=== PATIENT | female | born 2000 | race Caucasian/White ===

== ENCOUNTER 2021-03-14 21:00 | Emergency (ER) | payer MEDICAID, OTHER ==
[~2021-03-14] VITALS: Ht 172.7 cm; Wt 70.3 kg
[2021-03-14 22:01] VITALS: BP_SYST 128
--- NOTE | 2021-03-14 22:44 | NUR ---
Patient ambulatory to bed 1 for evaluation
--- NOTE | 2021-03-14 23:00 | NUR ---
Received patient to ER w/ c/o dizziness and vomiting at home while resting. Patient states that she had fainted but is unable to recollect event. Introduced self to patient, positioned for comfort. Bed to low position, continue to monitor. ER Dr. Temple at bedside examining patient.
--- NOTE | 2021-03-15 00:30 | NUR ---
Urine specimen collected and analyzed in lab. Results pending and to be given to SARAH NICK.
--- NOTE | 2021-03-15 01:02 | NUR ---
Patient resting quietly. No acute distress noted. Vital signs within normal range.
[2021-03-15 01:30] LABS: HEMATOCRIT 37.2 % (36-48); MEAN CORPUSCULAR HEMOGLOBIN 24 pg (27-31); MEAN CORPUSCULAR HGB CONC 32 % (32-36); MEAN CORPUSCULAR VOLUME 75 fL (79.0-98.0); RED BLOOD CELL COUNT(AUTO) 4.97 MIL/uL (4.2-6.2); WHITE BLOOD COUNT (AUTO) 8.4 K/uL (4.8-10.8)
[2021-03-15 01:31] LABS: BASOPHILS % (AUTO) 0.4 % (0.0-2.0); EOSINOPHILS % (AUTO) 0.2 % (0.0-4.0); LYMPHOCYTES % (AUTO) 24.5 % (20.5-51.5); MONOCYTES % (AUTO) 4.3 % (1.7-9.3); NEUTROPHILS % (AUTO) 70.6 % (40.0-70.0); PLATELET COUNT (AUTO) 184 K/uL (130-430); RED CELL DISTRIBUTION WIDTH 15.1 % (9.0-15.0)
[2021-03-15 01:32] LABS: LYMPHOCYTES # (AUTO) 2.1 K/uL (1.0-5.5); MONOCYTES # (AUTO) 0.4 K/uL (0.0-1.0); NEUTROPHILS # (AUTO) 5.9 K/uL (1.8-7.7)
--- NOTE | 2021-03-15 02:04 | NUR ---
Orthostatic vital signs done. lying 121/85 hr 52 (did see patient hr decrease as low as 44, md notified), Sitting 130/83 hr 87 (denies any dizziness or lightheadedness), and Standing 140/84 Hr 88 (denies any dizziness or lightheadedness).
[2021-03-15 02:48] VITALS: BP_SYST 121
--- NOTE | 2021-03-15 02:48 | NUR ---
Patient given written and verbal discharge instructions and verbalizes understanding. ER MD discussed with patient the results and treatment provided. Patient in stable condition. ID arm band removed. No Rx given. Patient educated on pain management and to follow up with PMD. Pain Scale 0/10. Opportunity for questions provided and answered.
== END 2021-03-15 02:48 | disposition home or self-care (01) ==
LOC: SED 21:00
DX: R55 Syncope and collapse (principal); R42 Dizziness and giddiness; Z79.899 Other long term (current) drug therapy
CPT/HCPCS: 36415; 81002; 81025; 85025; 99285